=== PATIENT | female | born 1955 | race Caucasian/White ===

== ENCOUNTER → 2018-04-15 | Outpatient (CLI) | payer OTHER ==
[2018-04-15 13:36] LABS: ANION GAP 6 mmol/L (5-15); CHLORIDE 108 mmol/L (98-107)
[2018-04-15 13:50] LABS: ALANINE AMINOTRANSFERASE 30 U/L (12-78); ALKALINE PHOSPHATASE 105 U/L (45-117); BILIRUBIN,TOTAL 0.5 mg/dL (0.2-1.0); CALCIUM 8.8 mg/dL (8.5-10.1); CHOL/HDL RATIO 5.1; CHOLESTEROL, TOTAL 235 mg/dL (140-239); CREATININE 0.72 mg/dL (0.55-1.02); HDL CHOL % 20 % (28-40); HDL CHOLESTEROL (DIRECT) 46 mg/dL (40-60); LDL CHOLESTEROL,CALCULATED 172 mg/dL (54-169); LDL/HDL RATIO 3.7 (0.5-3.0); TOTAL PROTEIN 7.8 g/dL (6.4-8.2); TRIGLYCERIDES 87 mg/dL (50-200); VLDL CHOLESTEROL 17 mg/dL (0-25)
== END | disposition home or self-care (01) ==
LOC: CFH 07:37
PROVIDERS: ATTEND Nurse Practitioner
DX: Z00.01 Encounter for general adult medical examination with abnormal findings (principal); R79.89 Other specified abnormal findings of blood chemistry
CPT/HCPCS: 36415; 80053; 80061; 82043; 84443

== ENCOUNTER 2019-10-24 07:14 | Outpatient (CLI) | payer OTHER ==
[2019-10-24 13:09] LABS: BASOPHILS # (AUTO) 0.03 x10^3/uL (0-0.1); BASOPHILS % (AUTO) 0 % (0-1); EOSINOPHILS # (AUTO) 0.16 x10^3/uL (0-0.4); EOSINOPHILS % (AUTO) 2 % (1-7); LYMPHOCYTES % (AUTO) 31 % (22-44); MD NO; MEAN CORPUSCULAR HEMOGLOBIN 29.7 pg (27.0-34.8); MEAN CORPUSCULAR HGB CONC 33.1 g/dL (32.4-35.8); MEAN CORPUSCULAR VOLUME 89.7 fL (80-100); MEAN PLATELET VOLUME 8.4 fL (7.4-10.4); MONOCYTES # (AUTO) 0.21 x10^3/uL (0.2-0.8); MONOCYTES % (AUTO) 2 % (2-9); NEUTROPHILS # (AUTO) 5.54 x10^3/uL (1.8-6.8); NEUTROPHILS % (AUTO) 64 % (42-75); PLATELET COUNT 337 x10^3/uL (130-400); RED BLOOD COUNT 4.56 x10^6/uL (3.82-5.3)
[2019-10-24 13:33] LABS: ALBUMIN 3.9 g/dL (3.4-5.0); ANION GAP 6 mmol/L (5-15); CALCIUM 9.1 mg/dL (8.5-10.1); CHLORIDE 105 mmol/L (98-107)
[2019-10-24 13:37] LABS: ALANINE AMINOTRANSFERASE 30 U/L (12-78); ALKALINE PHOSPHATASE 88 U/L (45-117); BILIRUBIN,TOTAL 0.4 mg/dL (0.2-1.0); CHOL/HDL RATIO 5.6; CHOLESTEROL, TOTAL 247 mg/dL (140-239); CREATININE 0.84 mg/dL (0.55-1.02); HDL CHOL % 18 % (28-40); HDL CHOLESTEROL (DIRECT) 44 mg/dL (40-60); LDL CHOLESTEROL,CALCULATED 184 mg/dL (54-169); LDL/HDL RATIO 4.2 (0.5-3.0); TOTAL PROTEIN 7.7 g/dL (6.4-8.2); TRIGLYCERIDES 96 mg/dL (50-200); VLDL CHOLESTEROL 19 mg/dL (0-25)
== END 2019-10-24 23:59 | disposition home or self-care (01) ==
LOC: CFH 07:14
PROVIDERS: ATTEND Nurse Practitioner
DX: Z00.00 Encounter for general adult medical examination without abnormal findings (principal); I10 Essential (primary) hypertension; E78.5 Hyperlipidemia, unspecified
CPT/HCPCS: 36415; 80053; 80061; 83036; 85025

== ENCOUNTER → 2019-11-14 | Outpatient (CLI) | payer OTHER | END | disposition home or self-care (01) | LOC: CFH 07:05 | PROVIDERS: ATTEND Nurse Practitioner | DX: Z12.31 Encounter for screening mammogram for malignant neoplasm of breast (principal); N63.23 Unspecified lump in the left breast, lower outer quadrant; N63.11 Unspecified lump in the right breast, upper outer quadrant; N63.42 Unspecified lump in left breast, subareolar; N64.89 Other specified disorders of breast | CPT/HCPCS: 77063; 77067 ==

== ENCOUNTER → 2019-12-20 | Outpatient (CLI) | payer OTHER | END | disposition home or self-care (01) | LOC: CFH 07:18 | PROVIDERS: ATTEND Nurse Practitioner | DX: N63.21 Unspecified lump in the left breast, upper outer quadrant (principal) | CPT/HCPCS: 76642; 77065 ==

== ENCOUNTER 2020-04-26 07:25 | Outpatient (CLI) | payer OTHER ==
[2020-04-26 13:25] LABS: ALANINE AMINOTRANSFERASE 27 U/L (12-78); ALBUMIN 3.9 g/dL (3.4-5.0); ALKALINE PHOSPHATASE 119 U/L (45-117); BILIRUBIN,TOTAL 0.6 mg/dL (0.2-1.0); CALCIUM 9.1 mg/dL (8.5-10.1); CHOL/HDL RATIO 4.1; CHOLESTEROL, TOTAL 173 mg/dL (140-239); CREATININE 0.76 mg/dL (0.55-1.02); HDL CHOL % 24 % (28-40); HDL CHOLESTEROL (DIRECT) 42 mg/dL (40-60); LDL CHOLESTEROL,CALCULATED 113 mg/dL (54-169); LDL/HDL RATIO 2.7 (0.5-3.0); TOTAL PROTEIN 7.8 g/dL (6.4-8.2); TRIGLYCERIDES 91 mg/dL (50-200); VLDL CHOLESTEROL 18 mg/dL (0-25)
[2020-04-26 13:39] LABS: ANION GAP 5 mmol/L (5-15); CHLORIDE 107 mmol/L (98-107)
[2020-06-14] MEDS ORDERED: HYDROCHLOROTH12.5 MG PO (16:11)
[2020-06-14] MEDS ORDERED: ATOR20TA37 PO (16:11)
[2020-06-14] MEDS ORDERED: ENAL20TA9 PO (16:11)
== END 2020-04-26 23:59 | disposition home or self-care (01) ==
LOC: CFH 07:25
PROVIDERS: ATTEND Nurse Practitioner Family
DX: Z11.59 Encounter for screening for other viral diseases (principal); E78.5 Hyperlipidemia, unspecified; I10 Essential (primary) hypertension; R73.01 Impaired fasting glucose
CPT/HCPCS: 36415; 80053; 80061; 83036; 86803

== ENCOUNTER → 2020-06-14 | Outpatient (CLI) | payer OTHER ==
[~2020-06-14] MED LIST: ATOR20TA37 PO; ENAL20TA PO; HYDROCHLOROTH12.5 MG PO
[2020-06-14 16:31] LABS: BASOPHILS # (AUTO) 0.06 x10^3/uL (0-0.1); BASOPHILS % (AUTO) 1 % (0-1); EOSINOPHILS # (AUTO) 0.14 x10^3/uL (0-0.4); EOSINOPHILS % (AUTO) 2 % (1-7); LYMPHOCYTES # (AUTO) 2.19 x10^3/uL (1-3.4); LYMPHOCYTES % (AUTO) 24 % (22-44); MD NO; MEAN CORPUSCULAR HEMOGLOBIN 29.6 pg (27.0-34.8); MEAN CORPUSCULAR HGB CONC 33.1 g/dL (32.4-35.8); MEAN CORPUSCULAR VOLUME 89.5 fL (80-100); MEAN PLATELET VOLUME 8.1 fL (7.4-10.4); MONOCYTES # (AUTO) 0.38 x10^3/uL (0.2-0.8); MONOCYTES % (AUTO) 4 % (2-9); NEUTROPHILS # (AUTO) 6.56 x10^3/uL (1.8-6.8); NEUTROPHILS % (AUTO) 70 % (42-75); PLATELET COUNT 348 x10^3/uL (130-400); RED BLOOD COUNT 4.42 x10^6/uL (3.82-5.3); RED CELL DISTRIBUTION WIDTH 13.3 % (9.6-15.2)
[2020-06-14 16:42] LABS: INTERNATIONAL NORMALIZED RATIO 0.97 (0.93-1.1)
[2020-06-14 16:45] LABS: ALBUMIN 3.8 g/dL (3.4-5.0); ANION GAP 6 mmol/L (5-15); CALCIUM 8.8 mg/dL (8.5-10.1); CHLORIDE 107 mmol/L (98-107)
[2020-06-14 16:49] LABS: ALANINE AMINOTRANSFERASE 25 U/L (12-78); ALKALINE PHOSPHATASE 132 U/L (45-117); BILIRUBIN,TOTAL 0.4 mg/dL (0.2-1.0); CREATININE 0.92 mg/dL (0.55-1.02); TOTAL PROTEIN 7.6 g/dL (6.4-8.2)
== END | disposition home or self-care (01) ==
LOC: STAR 15:43
PROVIDERS: ATTEND Orthopaedic Surgery
DX: Z01.812 Encounter for preprocedural laboratory examination (principal); M17.11 Unilateral primary osteoarthritis, right knee; M25.561 Pain in right knee; Z20.828 Contact with and (suspected) exposure to other viral communicable diseases
CPT/HCPCS: 36415; 80053; 83036; 85025; 85610; 85730; 87081; 87635; 93005

== ENCOUNTER 2020-06-19 07:38 | Day surgery (SDC) | payer OTHER ==
[~2020-06-19] VITALS: Ht 165.1 cm; Wt 119.4 kg
[~2020-06-19 07:38] MED LIST changes: +ACETAMINOPHEN 650 MG/20.3 ML UDC PO PRN; +BISACODYL 10 MG SUPP PR PRN; +DIPHENHYDRAMINE 25 MG CAPSULE PO PRN; -ENAL20TA PO; +ENAL20TA9 PO; +EPINEPHRINE 1 MG/ML, 1ML ONE; +HYDROcodone/APAP 5/325 TABLET PO PRN; +HYDROmorphone 1 MG/ML, 1ML INJ IV PRN; +KETOROLAC 60 MG/2 ML ONE; +MAGNESIUM HYDROXIDE 8%, 30ML UDC PO PRN; +ONDANSETRON 2MG/ML, 2ML IV PRN; +ONDANSETRON 4 MG TABLET PO PRN; +OXYcodone IR 5MG TABLET PO PRN; +ROPIvacaine/PF 0.5%, 20 ML ONE; +ROPIvacaine/PF 0.5%, 30 ML ONE; +SENNA/DOCUSATE TABLET PO PRN; +SODIUM CHLORIDE 0.9% 50 ML ONE; +TRANEXAMIC ACID 100 MG/ML, 10ML ONE; +VANCOMYCIN 1,000 MG ONE; +ZOLPIDEM 5MG TABLET PO PRN
[2020-06-19] MEDS ORDERED: MIDAZOLAM 1 MG/ML, 2ML ONE (08:01)
[2020-06-19] MEDS ORDERED: FENTANYL PF 250 MCG/5ML ONE (08:01)
[2020-06-19] MEDS ORDERED: DEXAMETHASONE 4 MG/ML, 1ML ONE ×3 (08:03)
[2020-06-19] MEDS ORDERED: ROCURONIUM 10MG/ML,5ML ONE (08:03)
[2020-06-19] MEDS ORDERED: ONDANSETRON 2MG/ML, 2ML ONE (08:03)
[2020-06-19] MEDS ORDERED: CEFAZOLIN 1,000 MG ONE ×2 (08:03)
[2020-06-19] MEDS ORDERED: PROPOFOL 10 MG/ML, 20ML ONE (08:03)
[2020-06-19] MEDS ORDERED: LACTATED RINGERS 1,000 ML IV SCH (08:05)
[2020-06-19] MEDS ORDERED: ACETAMINOPHEN 500 MG TABLET ONE (08:12)
[2020-06-19] MEDS ORDERED: GABAPENTIN 300 MG CAPSULE ONE (08:13)
[2020-06-19] MEDS ORDERED: ACETAMINOPHEN 325 MG TABLET PO PRN (08:30)
[2020-06-19] MEDS ORDERED: MEPERIDINE/PF 25MG/0.5ML IVPush PRN (08:30)
[2020-06-19] MEDS ORDERED: DIAZEPAM 5 MG/ML, 2ML IVPush PRN (08:30)
[2020-06-19] MEDS ORDERED: hydrALAzine 20 MG/ML, 1ML IV PRN (08:30)
[2020-06-19] MEDS ORDERED: DIPHENHYDRAMINE 50 MG/ML, 1ML IVPush PRN (08:30)
[2020-06-19] MEDS ORDERED: GABAPENTIN 300 MG CAPSULE PO ONE (08:30)
[2020-06-19] MEDS ORDERED: CHLORHEXIDINE 15 ML UDC MM ONE (08:30)
[2020-06-19] MEDS ORDERED: ACETAMINOPHEN 500 MG TABLET PO ONE (08:30)
[2020-06-19] MEDS ORDERED: ONDANSETRON 2MG/ML, 2ML IVPush PRN (08:30)
[2020-06-19] MEDS ORDERED: LABETALOL 5MG/ML, 20ML IV PRN (08:30)
[2020-06-19] MEDS ORDERED: OXYcodone 5 MG/5 ML ORAL.SOL UDC PO PRN (08:30)
[2020-06-19] MEDS ORDERED: PROMETHAZINE 25 MG/ML, 1ML IVPush PRN (08:30)
[2020-06-19] MEDS ORDERED: DOCUSATE 100 MG CAPSULE PO SCH (09:00)
[2020-06-19] MEDS ORDERED: HYDROCHLOROTHIAZIDE 12.5 MG CAPSULE PO SCH (09:00)
[2020-06-19] MEDS ORDERED: ENALAPRIL 20MG TABLET PO SCH (09:00)
[2020-06-19] MEDS ORDERED: NEOSTIGMINE 1 MG/ML, 10ML ONE (09:10)
[2020-06-19] MEDS ORDERED: GLYCOPYRROLATE 0.2MG/1ML, 5ML ONE (09:10)
[2020-06-19] MEDS ORDERED: ROPIvacaine/PF 0.5%, 30 ML ONE (10:25)
[2020-06-19] MEDS ORDERED: OXYcodone 5 MG/5 ML ORAL.SOL UDC ONE (10:45)
[2020-06-19] MEDS ORDERED: FENTANYL PF 100 MCG/2ML ONE (10:45)
[2020-06-19] MEDS: FENTANYL PF 100 MCG/2ML IV PRN ×2 (10:46→10:51)
[2020-06-19] MEDS: HYDROmorphone 1 MG/ML, 1ML INJ IVPush PRN ×4 (10:55→11:25)
[2020-06-19] MEDS ORDERED: HYDROmorphone 1 MG/ML, 1ML INJ ONE ×2 (11:00→11:16)
[2020-06-19] MEDS ORDERED: CEFAZOLIN PMX 2GM/50ML 50 ML IVPB SCH (13:00)
[2020-06-19] MEDS ORDERED: NS + 20MEQ KCL 1,000 ML IV SCH (13:00)
[2020-06-19] MEDS ORDERED: TRAM50TA2 PO (15:17)
[2020-06-19] MEDS ORDERED: OXYC5TAB3 PO (15:17)
[2020-06-19] MEDS ORDERED: MELO7.5T31 PO (15:18)
[2020-06-19] MEDS ORDERED: ASPIRIN 81 MG TABLET EC PO SCH (18:00)
[2020-06-19] MEDS ORDERED: ATORVASTATIN 20 MG TABLET PO SCH (21:00)
[2020-06-20] MEDS ORDERED: DEXAMETHASONE 4 MG/ML, 1ML IVPush SCH (06:00)
== END 2020-06-19 15:50 | disposition home or self-care (01) ==
LOC: OUT 07:38 → 4NE 12:28 → OUT 15:50
PROVIDERS: ATTEND Orthopaedic Surgery
DX: M17.11 Unilateral primary osteoarthritis, right knee (principal); M25.561 Pain in right knee; I10 Essential (primary) hypertension; E78.5 Hyperlipidemia, unspecified; E66.01 Morbid (severe) obesity due to excess calories; Z68.43 Body mass index [BMI] 50.0-59.9, adult; Z79.899 Other long term (current) drug therapy; Z87.891 Personal history of nicotine dependence; Z82.49 Family history of ischemic heart disease and other diseases of the circulatory system
CPT/HCPCS: 27447; 64447; 97110; 97161; 97165; C1713; C1776; J0171; J0690; J1100; J1170; J1885; J2250; J2405; J2704; J2710; J2795; J3010; J3370; J7120; G0378

== ENCOUNTER 2020-11-25 07:20 | Outpatient (CLI) | payer OTHER ==
[~2020-11-25 07:20] MED LIST changes: -ACETAMINOPHEN 650 MG/20.3 ML UDC PO PRN; -BISACODYL 10 MG SUPP PR PRN; -DIPHENHYDRAMINE 25 MG CAPSULE PO PRN; -EPINEPHRINE 1 MG/ML, 1ML ONE; -HYDROcodone/APAP 5/325 TABLET PO PRN; -HYDROmorphone 1 MG/ML, 1ML INJ IV PRN; -KETOROLAC 60 MG/2 ML ONE; -MAGNESIUM HYDROXIDE 8%, 30ML UDC PO PRN; +MELO7.5T31 PO; -ONDANSETRON 2MG/ML, 2ML IV PRN; -ONDANSETRON 4 MG TABLET PO PRN; +OXYC5TAB98 PO; -OXYcodone IR 5MG TABLET PO PRN; -ROPIvacaine/PF 0.5%, 20 ML ONE; -ROPIvacaine/PF 0.5%, 30 ML ONE; -SENNA/DOCUSATE TABLET PO PRN; -SODIUM CHLORIDE 0.9% 50 ML ONE; +TRAM50TA2 PO; -TRANEXAMIC ACID 100 MG/ML, 10ML ONE; -VANCOMYCIN 1,000 MG ONE; -ZOLPIDEM 5MG TABLET PO PRN
== END 2020-11-26 23:59 | disposition home or self-care (01) ==
LOC: CFH 07:20
PROVIDERS: ATTEND Internal Medicine Cardiovascular Disease
DX: I25.9 Chronic ischemic heart disease, unspecified (principal); I25.10 Atherosclerotic heart disease of native coronary artery without angina pectoris
CPT/HCPCS: 78452; 93017; A9502

== ENCOUNTER → 2020-12-10 | Outpatient (CLI) | payer OTHER | END | disposition home or self-care (01) | LOC: CFH 07:52 | PROVIDERS: ATTEND Internal Medicine Cardiovascular Disease | DX: I08.2 Rheumatic disorders of both aortic and tricuspid valves (principal); I11.9 Hypertensive heart disease without heart failure; I25.10 Atherosclerotic heart disease of native coronary artery without angina pectoris | CPT/HCPCS: 93306 ==

== ENCOUNTER → 2021-01-13 | Outpatient (CLI) | payer OTHER ==
[~2021-01-13] MED LIST changes: +ASPI81TA45 PO; +LISI-170 PO
[2021-01-13 09:33] LABS: ALBUMIN 4.1 g/dL (3.4-5.0); ANION GAP 4 mmol/L (5-15); CALCIUM 9.1 mg/dL (8.5-10.1); CHLORIDE 108 mmol/L (98-107); INTERNATIONAL NORMALIZED RATIO 0.97 (0.93-1.1); PROTHROMBIN TIME 10.4 Seconds (9.6-11.5)
[2021-01-13 09:37] LABS: ALANINE AMINOTRANSFERASE 37 U/L (12-78); ALKALINE PHOSPHATASE 147 U/L (45-117); BILIRUBIN,TOTAL 0.6 mg/dL (0.2-1.0); CREATININE 0.92 mg/dL (0.55-1.02); TOTAL PROTEIN 7.8 g/dL (6.4-8.2)
== END | disposition home or self-care (01) ==
LOC: STAR 08:00
PROVIDERS: ATTEND Surgery
DX: Z01.818 Encounter for other preprocedural examination (principal); D17.1 Benign lipomatous neoplasm of skin and subcutaneous tissue of trunk; I49.3 Ventricular premature depolarization; Z20.822 Contact with and (suspected) exposure to COVID-19
CPT/HCPCS: 36415; 80053; 85610; 85730; 87081; 93005; U0003

== ENCOUNTER 2021-01-17 08:27 | Day surgery (SDC) | payer OTHER ==
[~2021-01-17] VITALS: Ht 165.1 cm; Wt 116.8 kg
[2021-01-17] MEDS ORDERED: CHLORHEXIDINE 15 ML UDC MM ONE (09:00)
[2021-01-17] MEDS ORDERED: LACTATED RINGERS 1,000 ML IV SCH (09:00)
[2021-01-17] MEDS ORDERED: LIDOCAINE-MPF 1%, 2ML INFIL ONE (09:00)
[2021-01-17 09:06] VITALS: BP 154/87
[2021-01-17] MEDS ORDERED: MIDAZOLAM 1 MG/ML, 2ML ONE (09:32)
[2021-01-17] MEDS ORDERED: FENTANYL PF 100 MCG/2ML ONE (09:36)
[2021-01-17] MEDS ORDERED: BUPIVACAINE/PF 0.5% ONE (09:58)
[2021-01-17] MEDS ORDERED: EPINEPHRINE 1 MG/ML, 1ML ONE (09:58)
[2021-01-17] MEDS ORDERED: SUGAMMADEX 200 MG/2 ML IVPush ONE (10:10)
[2021-01-17] MEDS ORDERED: PROPOFOL 10 MG/ML, 20ML ONE (10:10)
[2021-01-17] MEDS ORDERED: ROCURONIUM 10 MG/ML,10ML ONE (10:10)
[2021-01-17] MEDS ORDERED: CEFAZOLIN 1,000 MG ONE (10:10)
[2021-01-17] MEDS ORDERED: SUCCINYLCHOLINE 20 MG/ML, 10ML ONE (10:10)
[2021-01-17] MEDS ORDERED: ONDANSETRON 2MG/ML, 2ML ONE (10:10)
[2021-01-17] MEDS ORDERED: MEPERIDINE/PF 25MG/0.5ML IVPush PRN (11:00)
[2021-01-17] MEDS ORDERED: LABETALOL 5MG/ML, 20ML IV PRN (11:00)
[2021-01-17] MEDS ORDERED: ONDANSETRON 2MG/ML, 2ML IVPush PRN (11:00)
[2021-01-17] MEDS ORDERED: OXYcodone 5 MG/5 ML ORAL.SOL UDC PO PRN (11:00)
[2021-01-17] MEDS ORDERED: HYDROmorphone 1 MG/ML, 1ML INJ IVPush PRN (11:00)
[2021-01-17] MEDS ORDERED: FENTANYL PF 100 MCG/2ML IV PRN (11:00)
[2021-01-17] MEDS ORDERED: DIAZEPAM 5 MG/ML, 2ML IVPush PRN (11:00)
[2021-01-17] MEDS ORDERED: hydrALAzine 20 MG/ML, 1ML IV PRN (11:00)
[2021-01-17] MEDS ORDERED: KETOROLAC 30 MG/1 ML IVPush PRN (11:00)
[2021-01-17] MEDS ORDERED: ACETAMINOPHEN 325 MG TABLET PO PRN (11:00)
[2021-01-17] MEDS ORDERED: DIPHENHYDRAMINE 50 MG/ML, 1ML IVPush PRN (11:00)
[2021-01-17] MEDS ORDERED: PROMETHAZINE 25 MG/ML, 1ML IVPush PRN (11:00)
== END 2021-01-17 12:56 | disposition home or self-care (01) ==
LOC: OUT 08:27
PROVIDERS: ATTEND Surgery
DX: D17.1 Benign lipomatous neoplasm of skin and subcutaneous tissue of trunk (principal); L72.0 Epidermal cyst; E78.5 Hyperlipidemia, unspecified; M19.90 Unspecified osteoarthritis, unspecified site; Z79.82 Long term (current) use of aspirin; Z79.899 Other long term (current) drug therapy; Z87.891 Personal history of nicotine dependence; Z96.651 Presence of right artificial knee joint; Z82.49 Family history of ischemic heart disease and other diseases of the circulatory system; Z83.42 Family history of familial hypercholesterolemia
CPT/HCPCS: 11404; 13101; 21931; 88304; 88305; J0171; J0330; J0690; J2250; J2405; J2704; J3010; J7120

== ENCOUNTER 2021-01-27 08:55 | Outpatient (CLI) | payer OTHER ==
[2021-01-27 09:30] LABS: BASOPHILS % (AUTO) 1 % (0-1); EOSINOPHILS % (AUTO) 2 % (1-7); LYMPHOCYTES % (AUTO) 24 % (22-44); MD NO; MEAN CORPUSCULAR HEMOGLOBIN 29.7 pg (27.0-34.8); MEAN CORPUSCULAR HGB CONC 33.4 g/dL (32.4-35.8); MEAN PLATELET VOLUME 7.8 fL (7.4-10.4); MONOCYTES % (AUTO) 4 % (2-9); NEUTROPHILS % (AUTO) 69 % (42-75); PLATELET COUNT 353 x10^3/uL (130-400); RED BLOOD COUNT 4.45 x10^6/uL (3.82-5.3); RED CELL DISTRIBUTION WIDTH 14.8 % (9.6-15.2)
== END 2021-01-27 23:59 | disposition home or self-care (01) ==
LOC: STAR 08:55
PROVIDERS: ATTEND Orthopaedic Surgery
DX: Z01.812 Encounter for preprocedural laboratory examination (principal); Z20.822 Contact with and (suspected) exposure to COVID-19
CPT/HCPCS: 36415; 83036; 85025; U0003

== ENCOUNTER 2021-01-31 08:57 | Day surgery (SDC) | payer OTHER ==
[~2021-01-31] VITALS: Ht 165.1 cm; Wt 116.4 kg
[~2021-01-31 08:57] MED LIST changes: +ACETAMINOPHEN 650 MG/20.3 ML UDC PO PRN; +BISACODYL 10 MG SUPP PR PRN; +CEFAZOLIN PMX 2GM/50ML 50 ML IVPB SCH; +DIPHENHYDRAMINE 50 MG CAPSULE PO PRN; +EPINEPHRINE 1 MG/ML, 1ML ONE; +HYDROcodone/APAP 5/325 TABLET PO PRN; +HYDROmorphone 1 MG/ML, 1ML INJ IV PRN; +KETOROLAC 60 MG/2 ML ONE; +MAGNESIUM HYDROXIDE 8%, 30ML UDC PO PRN; +NS + 20MEQ KCL 1,000 ML IV SCH; +ONDANSETRON 2MG/ML, 2ML IV PRN; +ONDANSETRON 4 MG TABLET PO PRN; +OXYcodone IR 5MG TABLET PO PRN; +ROPIvacaine/PF 0.5%, 20 ML ONE; +ROPIvacaine/PF 0.5%, 30 ML ONE; +SENNA/DOCUSATE TABLET PO PRN; +SODIUM CHLORIDE 0.9% 50 ML ONE; +TRANEXAMIC ACID 100 MG/ML, 10ML ONE; +VANCOMYCIN 1,000 MG ONE; +ZOLPIDEM 5MG TABLET PO PRN
[2021-01-31] MEDS ORDERED: HYDROCHLOROTHIAZIDE 12.5 MG CAPSULE PO SCH (09:00)
[2021-01-31] MEDS ORDERED: DOCUSATE 100 MG CAPSULE PO SCH (09:00)
[2021-01-31] MEDS ORDERED: LISINOPRIL 20 MG TABLET PO SCH (09:00)
[2021-01-31] MEDS ORDERED: CHLORHEXIDINE 15 ML UDC ONE ×2 (09:14→09:33)
[2021-01-31] MEDS ORDERED: LIDOCAINE-MPF 1%, 2ML ONE (09:14)
[2021-01-31 09:18] VITALS: BP 170/84
[2021-01-31] MEDS ORDERED: LACTATED RINGERS 1,000 ML IV SCH (09:30)
[2021-01-31] MEDS ORDERED: CHLORHEXIDINE 15 ML UDC PO ONE (09:30)
[2021-01-31] MEDS ORDERED: GABAPENTIN 300 MG CAPSULE PO ONE (09:30)
[2021-01-31] MEDS ORDERED: LIDOCAINE-MPF 1%, 2ML INFIL ONE (09:30)
[2021-01-31] MEDS ORDERED: ACETAMINOPHEN 500 MG TABLET PO ONE (09:30)
[2021-01-31] MEDS ORDERED: FENTANYL PF 250 MCG/5ML ONE ×2 (09:32→10:54)
[2021-01-31] MEDS ORDERED: MIDAZOLAM 1 MG/ML, 2ML ONE (09:32)
[2021-01-31] MEDS ORDERED: GABAPENTIN 300 MG CAPSULE ONE (09:44)
[2021-01-31] MEDS ORDERED: ACETAMINOPHEN 500 MG TABLET ONE (09:45)
[2021-01-31] MEDS ORDERED: HALOPERIDOL 5 MG/ML IV PRN (10:30)
[2021-01-31] MEDS ORDERED: morphine SULFATE 10 MG/ML, 1ML IVPush PRN (10:30)
[2021-01-31] MEDS ORDERED: MEPERIDINE/PF 25MG/0.5ML IVPush PRN (10:30)
[2021-01-31] MEDS ORDERED: ACETAMINOPHEN 325 MG TABLET PO PRN (10:30)
[2021-01-31] MEDS ORDERED: HYDROmorphone 1 MG/ML, 1ML INJ IVPush PRN (10:30)
[2021-01-31] MEDS ORDERED: FENTANYL PF 100 MCG/2ML IV PRN (10:30)
[2021-01-31] MEDS ORDERED: PROMETHAZINE 25 MG/ML, 1ML IVPush PRN (10:30)
[2021-01-31] MEDS ORDERED: LABETALOL 5MG/ML, 20ML IV PRN (10:30)
[2021-01-31] MEDS ORDERED: OXYcodone 5 MG/5 ML ORAL.SOL UDC PO PRN (10:30)
[2021-01-31] MEDS ORDERED: DEXAMETHASONE 4 MG/ML, 1ML ONE (10:31)
[2021-01-31] MEDS ORDERED: CEFAZOLIN 1,000 MG ONE (10:53)
[2021-01-31] MEDS ORDERED: NEOSTIGMINE 1 MG/ML, 10ML ONE (10:53)
[2021-01-31] MEDS ORDERED: GLYCOPYRROLATE 0.2MG/1ML, 5ML ONE (10:53)
[2021-01-31] MEDS ORDERED: ONDANSETRON 2MG/ML, 2ML ONE (10:53)
[2021-01-31] MEDS ORDERED: ROCURONIUM 10MG/ML,5ML ONE (10:53)
[2021-01-31] MEDS ORDERED: PROPOFOL 10 MG/ML, 20ML ONE (10:53)
[2021-01-31] MEDS ORDERED: OXYcodone 5 MG/5 ML ORAL.SOL UDC ONE (12:28)
[2021-01-31] MEDS ORDERED: FENTANYL PF 100 MCG/2ML ONE (12:28)
[2021-01-31] MEDS ORDERED: ASPIRIN 81 MG TABLET EC PO SCH (18:00)
[2021-02-01] MEDS ORDERED: DEXAMETHASONE 4 MG/ML, 1ML IVPush SCH (06:00)
== END 2021-01-31 15:45 | disposition home or self-care (01) ==
LOC: OUT 08:57
PROVIDERS: ATTEND Orthopaedic Surgery
DX: M17.12 Unilateral primary osteoarthritis, left knee (principal); M25.762 Osteophyte, left knee; M21.062 Valgus deformity, not elsewhere classified, left knee; G89.18 Other acute postprocedural pain; I10 Essential (primary) hypertension; E78.5 Hyperlipidemia, unspecified; E66.9 Obesity, unspecified; Z79.82 Long term (current) use of aspirin; Z79.899 Other long term (current) drug therapy; Z87.891 Personal history of nicotine dependence; Z96.651 Presence of right artificial knee joint; Z82.49 Family history of ischemic heart disease and other diseases of the circulatory system
CPT/HCPCS: 27447; 64447; 97162; 97165; C1713; C1776; J0171; J0690; J1885; J2250; J2405; J2704; J2710; J2795; J3010; J3370; J7120; J1100